=== PATIENT | female | born 1990 | race Caucasian/White ===

== ENCOUNTER → 2016-10-29 | Outpatient (CLI) | payer OTHER ==
[~2016-10-29] MED LIST: PREN29TA PO; PROM25TA10 PO; VITA100064 PO
== END ==
LOC: HPND 07:27
PROVIDERS: ATTEND Obstetrics & Gynecology
DX: Z36 Encounter for antenatal screening of mother (principal)
CPT/HCPCS: 36416; 76813

== ENCOUNTER 2016-11-04 09:23 | Emergency (ER) | payer OTHER ==
[~2016-11-04] VITALS: Ht 167.6 cm; Wt 80.0 kg
[~2016-11-04 09:23] MED LIST changes: -PROM25TA10 PO
[2016-11-04 09:27] VITALS: BP 148/86; PULSE 122; RESP 21; TEMP 97.8; O2SAT 100
[2016-11-04 09:45] VITALS: BP 119/66; PULSE 108; RESP 20; O2SAT 100
[2016-11-04] MEDS ORDERED: PROM25TA10 PO (09:47)
--- NOTE | 2016-11-04 10:35 | PD ---
HPI Chief Complaint: Related Problem Time Seen by Provider: 10:17 Travel History International Travel<30 days: No Contact w/Intl Traveler<30days: No Traveled to known affect area: No History of Present Illness HPI 26yo F who is [id number] presents to the ED with c/o episode of feeling her heart beat fast and sob yesterday that lasted an hour. States it happened again today and she checked her home pulse ox and her oxygen was good at 97% but her heart rate was 120bpm. Pt states it felt like a panic attack and that she has been feeling nervous about her baby since her miscarriage last February. Pt currently denies any chest pain, sob, fever, cough, n/v, abdominal pain, vaginal bleeding, weakness or numbness. Pt called her OB and was told to come to the ED. Pt is saturating at 100% on RA and HR is in the 80s. PFSH Past Medical History ?: LMP: JULY 31 : 2 Miscarriage: 1 Social History Alcohol Use: No Tobacco Use: No Substance Use: No Allergies-Medications (Allergen,Severity, Reaction): Coded Allergies: No Known Allergies (Unverified , 11/04/16) Reported Meds & Prescriptions Reported Meds & Active Scripts Active Reported Phenergan (Promethazine HCl) 25 Mg Tablet 25 Mg PO ONCE Plus Iron 29-1 mg ( Vit-Iron Carbonyl) 1 Tab Tab 1 Tab PO DAILY Review of Systems Except as stated in HPI: all other systems reviewed are Neg Physical Exam Narrative GENERAL: 26yo F not in distress. SKIN: Focused skin assessment warm/dry. HEAD: Atraumatic. Normocephalic. CARDIOVASCULAR: Regular rate and rhythm. No murmur appreciated. HR 85bpm. RESPIRATORY: No accessory muscle use. Clear to auscultation. Breath sounds equal bilaterally. Saturating at 100% on RA. GASTROINTESTINAL: Abdomen soft, non-tender. No rebound tenderness or guarding. MUSCULOSKELETAL: No obvious deformities. No clubbing. No cyanosis. No edema. NEUROLOGICAL: Awake and alert. No obvious cranial nerve deficits. Motor grossly within normal limits. Normal speech. PSYCHIATRIC: Appropriate mood and affect; insight and judgment normal. Data Data Last Documented VS Vital Signs Date Time Temp Pulse Resp B/P Pulse Ox O2 Delivery O2 Flow Rate FiO2 11/04/16 11:41 91 20 100 11/04/16 09:45 119/66 Room Air 11/04/16 09:27 97.8 Orders Electrocardiogram (11/04/16 ) Ed Poc Ultrasound (11/04/16 ) [facility] Medical Decision Making Medical Screen Exam Complete: Yes Emergency Medical Condition: Yes Interpretation(s) EKG: NSR 84bpm. Normal axis. No ST segment elevation or depression. Differential Diagnosis Panic attack vs. anxiety vs. PE is unlikely Narrative Course 26yo F with what sounds like a panic attack today. Discussed the risk and benefit of CT angio to r/o PE and given the low suspicion, decided together not to do a CT angio. Pt is requesting that I do a sonogram to make sure the baby is ok even though she has no abdominal pain or vaginal bleeding. Procedures Procedure Narrative Emergency Department Pelvic ultrasound was performed with patient consent. The curvilinear probe was used in the transverse and sagittal views within the suprapubic region revealing single intrauterine . heart rate was 146. Diagnosis Primary Impression: Panic attack Patient Instructions: General Instructions Departure Forms: Tests/Procedures Additional Instructions: Please follow up with your OBGYN as an outpatient. Return to the ED if you have any chest pain or sob. Med/Other Pt SpecificInfo: No Change to Meds Disposition: 01 DISCHARGE HOME Condition: Stable LukeAlthea ROCHA Nov 04, 2016 10:35
[2016-11-04 11:41] VITALS: PULSE 91; RESP 20; O2SAT 100
--- NOTE | 2016-11-05 10:01 | EKG ---
Date Performed: 11/04/2016 Time Performed: 10:50:26 PTAGE: 26 years EKG: Sinus rhythm NORMAL ECG NO PREVIOUS TRACING DOCTOR: Felice Shafer Interpretating Date/Time 11/05/2016 09:59:31
== END 2016-11-04 12:13 | disposition home or self-care (01) ==
LOC: NEPD 09:23
DX: O99.342 Other mental disorders complicating pregnancy, second trimester (principal); F41.0 Panic disorder [episodic paroxysmal anxiety]; R06.02 Shortness of breath; Z79.899 Other long term (current) drug therapy; Z3A.14 14 weeks gestation of pregnancy
CPT/HCPCS: 93005; 99283

== ENCOUNTER 2016-11-21 10:48 | Emergency (ER) | payer OTHER ==
[~2016-11-21 10:48] MED LIST changes: +PROM25TA10 PO; -VITA100064 PO
--- NOTE | 2016-11-21 11:29 | PD ---
HPI Chief Complaint Leaking fluid, 17 weeks Date Seen: Nov 21, 2016 Time Seen: 11:45 Travel History International Travel<30 Days: No Contact w/Intl Traveler<30Days: No Known Affected Area: No History of Present Illness HPI Pt is a 26 yo who presents with c/o leaking fluid vaginally. EDC is 05-07-2017. care with Dr Escoto, previously uncomplicated. Denies any fevers. Denies any pain or contractions. She states she noted staining, clear on her underwear last night, and this has continued till this morning. Para: 0 : 2 Last Menstrual Period: Nov 21, 2016 Miscarriage: 1 : 0 History Past Medical History Narrative Medical Nil significant Medical History: Denies Significant Hx Past Surgical History Surgical History: No Previous Surgery Family History Family History: Negative Social History Alcohol Use: No Tobacco Use: No Substance Abuse: No Allergies-Medications (Allergen,Severity, Reaction): Coded Allergies: No Known Allergies (Unverified , 11/04/16) Home Meds Reported Medications Promethazine (Phenergan)25 Mg [id number] Mg PO ONCE Ref 0 11/04/16 Vit-Iron Carbonyl ( Plus Iron 29-1 mg)1 Tab Tab1 Tab PO DAILY #30 TAB Ref 0 02/22/16 Review of Systems Except as stated in HPI: all other systems reviewed are Neg Physical Exam Narrative GENERAL: Well-nourished, well-developed patient. SKIN: Warm and dry. HEAD: Normocephalic and atraumatic. EYES: No scleral icterus. No injection or drainage. ENT: No nasal drainage noted. Mucous membranes pink. Airway patent. NECK: Supple, trachea midline. No JVD. CARDIOVASCULAR: Regular rate and rhythm without murmurs, gallops, or rubs. RESPIRATORY: Breath sounds equal bilaterally. No accessory muscle use. BREASTS: Bilateral exam showed no masses , no retractions, no nipple discharge. ABDOMEN/GI: Abdomen soft, non-tender, bowel sounds present, no rebound, no guarding Gravid to [-] weeks size Fundal Height: [-] GENITOURINARY: External Genitalia: intact and normal in appearance BUS glands: [-] Cervix: STERILE Speculum exam. No pool of fluid.No leak with strain. Thick yellowish discharge noted Cervix appears closed Swabs colled for Amniosure and for wet mount Dilatation: [-] Effacement: [-] Station: [-] Presentation: [-] Membranes: [intact] Uterine Contractions: [none] FHT's: Category: [-] Baseline: [-] Reactive: [-] Variability: [-] Decels: [-] EXTREMITIES: No cyanosis or edema. BACK: Nontender without obvious deformity. No CVA tenderness. NEUROLOGICAL: Awake and alert. Motor and sensory grossly within normal limits. Five out of 5 muscle strength in all muscle groups. Normal speech. [facility] Medical Record Reviewed: Yes Interpretation(s) Amniosure NEGATIVE Wet mount NEGATIVE Results discussed with patient Plan Discharge home. to call with any increased vaginal drainage, or bleeding Diagnosis Diagnosis: Primary Impression: Vaginal discharge during in first trimester Disposition: 01 DISCHARGE HOME Condition: Good Jonny Morel MD Nov 21, 2016 11:29
== END 2016-11-21 14:03 | disposition home or self-care (01) ==
LOC: HOBED 10:48
DX: O26.892 Other specified pregnancy related conditions, second trimester (principal); N89.8 Other specified noninflammatory disorders of vagina; Z3A.17 17 weeks gestation of pregnancy
CPT/HCPCS: 87210; 99283

== ENCOUNTER 2017-04-24 22:43 | Emergency (ER) | payer OTHER ==
--- NOTE | 2017-04-24 23:14 | PD ---
HPI Chief Complaint 38 weeks and 1 day Uterine contractions 1 day Date Seen: Apr 24, 2017 Time Seen: 23:25 Travel History International Travel<30 Days: No Contact w/Intl Traveler<30Days: No Known Affected Area: No History of Present Illness HPI Pt is a 26 yo at 38 weeks and 1 day EDC 05-07-2017, care with dr Escoto. Care previously uncomplicated. Patient reports uterine contractions 1 day Prior to presenting to ER, contractions were about 5 minutes apart Active movements. No vaginal bleeding. Patient was 3cm dilated in office yesterday. Weeks Gestation: 38 Para: 0 : 1 Last Menstrual Period: Nov 21, 2016 Miscarriage: 1 History Past Medical History Medical History: Denies Significant Hx Obstetric History Obstetric History previous 1st trimester miscarriage Family History Family History: Negative Social History Alcohol Use: No Tobacco Use: No Substance Abuse: No Allergies-Medications (Allergen,Severity, Reaction): Coded Allergies: No Known Allergies (Unverified , 11/04/16) Home Meds Reported Medications Promethazine (Phenergan) 25 Mg Tablet, 25 MG PO ONCE for Nausea/Vomiting, TAB 0 Refills 11/04/16 Vit-Iron Carbonyl ( Plus Iron 29-1 mg) 1 Tab Tab, 1 TAB PO DAILY for Nutritional Supplement, #30 TAB 0 Refills 02/22/16 Review of Systems Except as stated in HPI: all other systems reviewed are Neg Physical Exam Narrative GENERAL: Well-nourished, well-developed patient. SKIN: Warm and dry. HEAD: Normocephalic and atraumatic. EYES: No scleral icterus. No injection or drainage. ENT: No nasal drainage noted. Mucous membranes pink. Airway patent. NECK: Supple, trachea midline. No JVD. CARDIOVASCULAR: Regular rate and rhythm without murmurs, gallops, or rubs. RESPIRATORY: Breath sounds equal bilaterally. No accessory muscle use. BREASTS: Bilateral exam showed no masses , no retractions, no nipple discharge. ABDOMEN/GI: Abdomen soft, non-tender, bowel sounds present, no rebound, no guarding Gravid to [38] weeks size Fundal Height: [38] GENITOURINARY: External Genitalia: intact and normal in appearance BUS glands: [wnl] Cervix: [moderate] Dilatation: [2-3cm] posterior Effacement: [50%] Station: [-3] Presentation: [vertex] Membranes: [intact] Uterine Contractions: [10 minutes] FHT's: Category: [1] Baseline: [130s] Reactive: [-] Variability: [moderate] Decels: [none] EXTREMITIES: No cyanosis or edema. BACK: Nontender without obvious deformity. No CVA tenderness. NEUROLOGICAL: Awake and alert. Motor and sensory grossly within normal limits. Five out of 5 muscle strength in all muscle groups. Normal speech. Data Data Vital Signs Reviewed: Yes [facility] Medical Record Reviewed: Yes Plan 26 yo at 38 weeks and 1 day IUP. Presents with uterine contractions every 5 minutes for about 1 hour at home. Contractions now spacing out. Unchanged from office exam. status reassuring Will recheck in 1 hour. Cervix unchanged after 1 hour. Patient declines offer of PO Vistaril. Labor precautions emphasized. Diagnosis Diagnosis: Primary Impression: with 38 completed weeks gestation Additional Impression: False labor after 37 weeks of gestation without delivery Disposition: 01 DISCHARGE HOME Condition: Good Jonny Morel MD Apr 24, 2017 23:14
== END 2017-04-25 01:17 | disposition home or self-care (01) ==
LOC: HOBED 22:43
DX: O47.1 False labor at or after 37 completed weeks of gestation (principal); Z3A.38 38 weeks gestation of pregnancy
CPT/HCPCS: 59025

== ENCOUNTER 2017-04-28 23:24 | Emergency (ER) | payer OTHER ==
--- NOTE | 2017-04-29 00:12 | PD ---
HPI Chief Complaint Contractions Date Seen: Apr 29, 2017 Time Seen: 00:08 Travel History International Travel<30 Days: No Contact w/Intl Traveler<30Days: No Known Affected Area: No History of Present Illness HPI 26-year-old who is at 39 weeks 1 day comes in with contractions since 8 PM. They are irregular and patient states that she's had contractions similar to this episode several times and has become somewhat frustrating. Patient was in here last week with contractions and she was noted to be 3 cm but did not change and in the office last she was still 3 cm. Patient had some watery vaginal discharge and she also wanted to ensure that she did not rupture her membranes. Patient denies any antepartum complications History Past Medical History Medical History: Denies Significant Hx Family History Family History: Negative Social History Alcohol Use: No Tobacco Use: No Substance Abuse: No Allergies-Medications (Allergen,Severity, Reaction): Coded Allergies: No Known Allergies (Unverified , 11/04/16) Home Meds Reported Medications Promethazine (Phenergan) 25 Mg Tablet, 25 MG PO ONCE for Nausea/Vomiting, TAB 0 Refills 11/04/16 Vit-Iron Carbonyl ( Plus Iron 29-1 mg) 1 Tab Tab, 1 TAB PO DAILY for Nutritional Supplement, #30 TAB 0 Refills 02/22/16 Review of Systems Except as stated in HPI: all other systems reviewed are Neg Physical Exam Narrative GENERAL: Well-nourished, well-developed patient. SKIN: Warm and dry. HEAD: Normocephalic and atraumatic. EYES: No scleral icterus. No injection or drainage. ENT: No nasal drainage noted. Mucous membranes pink. Airway patent. NECK: Supple, trachea midline. No JVD. CARDIOVASCULAR: Regular rate and rhythm without murmurs, gallops, or rubs. RESPIRATORY: Breath sounds equal bilaterally. No accessory muscle use. ABDOMEN/GI: Abdomen soft, non-tender, bowel sounds present, no rebound, no guarding Gravid to [38-] weeks size Fundal Height: [-] GENITOURINARY: External Genitalia: intact and normal in appearance BUS glands: [-] Normal Cervix: [-] Posterior Dilatation: [-] 3 Effacement: [-] 50 Station: [-] -2 Presentation: [-] Vertex Membranes: [intact or ruptured] intact with negative amnisure Uterine Contractions: [-] Irregular every 8-10 FHT's: Category: [-] 1 Baseline: [-] 140 Reactive: [-] Moderate Variability: [-] Moderate Decels: [-] Absent EXTREMITIES: No cyanosis or edema. BACK: Nontender without obvious deformity. No CVA tenderness. NEUROLOGICAL: Awake and alert. Motor and sensory grossly within normal limits. Five out of 5 muscle strength in all muscle groups. Normal speech. Data Data Vital Signs Reviewed: Yes [facility] Medical Record Reviewed: Yes Plan 26-year-old at 39 weeks 1 day with false labor and no cervical change since last week Amnisure negative Follow-up with OB provider as scheduled Diagnosis Diagnosis: Primary Impression: 39 weeks gestation of Additional Impression: False labor after 37 completed weeks of gestation Disposition: 01 DISCHARGE HOME Rosalinda Mendenhall MD Apr 29, 2017 00:12
== END 2017-04-29 00:23 | disposition home or self-care (01) ==
LOC: HOBED 23:24
DX: O47.1 False labor at or after 37 completed weeks of gestation (principal); Z3A.39 39 weeks gestation of pregnancy
CPT/HCPCS: 84112; 99283

== ENCOUNTER 2017-04-30 09:48 | Inpatient (IN) | payer OTHER ==
[2017-04-30] VITALS (73 sets, daily range): BP systolic 96–136; BP diastolic 60–76; PULSE 72–112; RESP 14–20; TEMP 97.5–98.7; O2SAT 100
[~2017-04-30] VITALS: Ht 167.6 cm; Wt 92.0 kg
--- NOTE | 2017-04-30 10:30 | PD ---
HPI Chief Complaint LOF Travel History International Travel<30 Days: No Contact w/Intl Traveler<30Days: No Known Affected Area: No History of Present Illness HPI 26y/o , IUP at 39.2 PNC uncomplicated per patient report Patient presents c/o gush of clear fluid at 8:30am followed by another gush of fluid after arrival in the parking lot and continues to leak since arriving. She reports irregular contractions but denies regular or painful retractions. She reports good FM. She denies any VB. She has no other complaints or concerns today. Weeks Gestation: 39 Para: 0 : 2 History Past Medical History Medical History: Denies Significant Hx Obstetric History Obstetric History , SAB 1 Past Surgical History Surgical History: No Previous Surgery Family History Narrative Family History Hypothyroidism, CVA Social History Alcohol Use: No Tobacco Use: No Substance Abuse: No Allergies-Medications (Allergen,Severity, Reaction): Coded Allergies: No Known Allergies (Unverified , 11/04/16) Home Meds Reported Medications Promethazine (Phenergan) 25 Mg Tablet, 25 MG PO ONCE for Nausea/Vomiting, TAB 0 Refills 11/04/16 Vit-Iron Carbonyl ( Plus Iron 29-1 mg) 1 Tab Tab, 1 TAB PO DAILY for Nutritional Supplement, #30 TAB 0 Refills 02/22/16 Review of Systems Except as stated in HPI: all other systems reviewed are Neg Physical Exam Narrative GENERAL: Well-nourished, well-developed patient. SKIN: Warm and dry. HEAD: Normocephalic and atraumatic. EYES: No scleral icterus. No injection or drainage. ENT: No nasal drainage noted. Mucous membranes pink. Airway patent. NECK: Supple, trachea midline. No JVD. CARDIOVASCULAR: Regular rate and rhythm without murmurs, gallops, or rubs. RESPIRATORY: Breath sounds equal bilaterally. No accessory muscle use. BREASTS: Deferred ABDOMEN/GI: Abdomen soft, non-tender, bowel sounds present, no rebound, no guarding Gravid GENITOURINARY: External Genitalia: intact and normal in appearance. Grossly normal BUS, grossly normal rugae. Patient appears to have grossly ruptured membranes. SVE 4-5/70/-1 as per RN. Cephalic as per RN FHT's: heart tones are in the 140s with moderate long-term variability, good accelerations, no decelerations. This is a category 1 heart rate tracing and reactive NST EXTREMITIES: No cyanosis or edema. BACK: Nontender without obvious deformity. NEUROLOGICAL: Awake and alert. Motor and sensory grossly within normal limits. Five out of 5 muscle strength in all muscle groups. Normal speech. Psychiatric: Grossly normal memory and affect Muscle skeletal: Grossly normal range of motion, gait, muscle strength Data Data Orders Orders Ob (2e) Additional Admit Info (04/30/17 10:25) MDM Narrative Course / MDM Assessment/plan: 26-year-old 1. IUP at 39.2 2. SROM: The patient is grossly ruptured membranes and may be entering labor with a cervical exam of [address] Mart was notified and the patient will be admitted to Dr. Escoto. Initial labor orders were placed and discussed in brief the patient risks of /risks and indications for delivery. 3. well-being: Reassuring testing with category 1 heart rate tracing and reactive NST 4. GBS negative Kassie Johns MD Apr 30, 2017 10:30
[2017-04-30] MEDS ORDERED: LACTATED RINGER'S 1000 ML INJ 1,000 ML IV PRN (10:31)
[2017-04-30] MEDS ORDERED: SODIUM CHLORID 0.9% 500 ML INJ 500 ML IV PRN (10:45)
[2017-04-30] MEDS ORDERED: ONDANSETRON HCL 4 MG/2 ML VIAL IV PUSH PRN (10:45)
[2017-04-30] MEDS ORDERED: CITRIC ACID-SODIUM CITRATE LIQ 30 ML UDC PO SCH (10:45)
[2017-04-30] MEDS ORDERED: OXYTOCIN 30 UNITS-500ML PREMIX 500 ML IV ONE (10:45)
[2017-04-30] MEDS ORDERED: LIDOCAINE HCL 1% 50 ML VIAL INFIL PRN (10:45)
[2017-04-30] MEDS ORDERED: MINERAL OIL 10 ML VIAL TOPICAL PRN (10:45)
[2017-04-30] MEDS ORDERED: LIDOCAINE HCL 1% 50 ML VIAL I-DERMAL PRN (10:45)
[2017-04-30] MEDS ORDERED: SODIUM CHLOR 0.9% 1000 ML INJ 1,000 ML IV PRN (10:51)
[2017-04-30 11:01] LABS: AUTOMATED NEUTROPHIL # 8.3 TH/MM3 (1.8-7.7); BASOPHIL % 0.2 % (0.0-2.0); EOSINOPHIL % 0.3 % (0.0-4.0); HEMATOCRIT 34.5 % (35.0-46.0); HEMOGLOBIN 11.4 GM/DL (11.6-15.3); LYMPH % 16.1 % (9.0-44.0); LYMPHOCYTE # 1.7 TH/MM3 (1.0-4.8); MEAN CELL VOLUME 79.2 FL (80.0-100.0); MEAN CORPUSCULAR HEMOGLOBIN 26.1 PG (27.0-34.0); MEAN PLATELET VOLUME 8.1 FL (7.0-11.0); MONO % 5.4 % (0.0-8.0); MONOCYTE # 0.6 TH/MM3 (0-0.9); PLATELET COUNT 316 TH/MM3 (150-450); RED BLOOD COUNT 4.36 MIL/MM3 (4.00-5.30); RED CELL DISTRIBUTION WIDTH 15.8 % (11.6-17.2); WHITE BLOOD COUNT 10.6 TH/MM3 (4.0-11.0)
[2017-04-30] MEDS: LACTATED RINGER'S 1000 ML INJ 1,000 ML IV SCH ×2 (11:09→19:11)
[2017-04-30 11:17] LABS: BILIRUBIN, URINE NEG (NEG); BLOOD, URINE NEG (NEG); GLUCOSE,URINE NEG (NEG); KETONE, URINE NEG (NEG); MUCUS URINE FEW /lpf (OCC); NITRITE,URINE NEG (NEG); PH, URINE 6.5 (5.0-8.5); SQUAMOUS EPITHELIAL CELL URINE 2 /hpf (0-5); URINE COLOR YELLOW (YELLW/STRAW); URINE LEUKOCYTE ESTERASE SMALL (NEG)
--- NOTE | 2017-04-30 13:19 | PD.LABORPN ---
Subjective Subjective doing well no CTX Objective Vital Signs Vital Signs Date Time Temp Pulse Resp B/P (MAP) Pulse Ox O2 Delivery O2 Flow Rate FiO2 04/30/17 12:30 95 114/75 (88) 04/30/17 12:00 89 110/67 (81) 04/30/17 11:30 93 107/73 (84) 04/30/17 10:47 86 117/69 (85) Objective Pelvic Exam: Cervix: [-] Dilatation: 4-5 Effacement: [-] Station: [-] Presentation: [-] Membranes: SROM at 8:30 Uterine Contractions: [-] FHT's: Category: 1 Baseline: [-] Reactive: [-] Variability: [-] Decels: [-] Weeks Gestation: 39 Assessment/Plan Problem List: (1) 39 weeks gestation of ICD Codes: Z3A.39 - 39 weeks gestation of Chidi Mart MD Apr 30, 2017 13:19
[2017-04-30] MEDS ORDERED: OXYTOCIN 30 UNITS-500ML PREMIX 500 ML IV PRN (13:30)
[2017-04-30] MEDS ORDERED: DO NOT ADMINISTER ANTICOAGULANTS PRN (16:00)
[2017-04-30] MEDS ORDERED: MEASLES, MUMPS, RUBELLA VACCINE 0.5 ML VIAL SQ ONE (16:00)
[2017-04-30] MEDS ORDERED: NO SYSTEM NARCOTICS PRN (16:00)
[2017-04-30] MEDS ORDERED: DIPHTH/TETANUS/ACEL PERTUSSIS (BOOSTER) 0.5 ML VIAL/PFS IM ONE (16:00)
[2017-04-30] MEDS ORDERED: fentaNYL 2MCG-BUPIV 0.125% 100 ML EPIDURAL SCH (16:00)
[2017-04-30] MEDS ORDERED: ePHEDrine/NS 25 MG/5 ML SYRINGE ONE (16:05)
[2017-04-30] MEDS ORDERED: fentaNYL 2MCG-BUPIV 0.125% INJ 100 ML ONE (16:05)
--- NOTE | 2017-04-30 17:43 | PD.LABORPN ---
Subjective Subjective doing well Objective Vital Signs Vital Signs Date Time Temp Pulse Resp B/P (MAP) Pulse Ox O2 Delivery O2 Flow Rate FiO2 04/30/17 17:25 74 04/30/17 17:20 75 04/30/17 17:15 83 04/30/17 17:10 75 04/30/17 17:05 86 115/70 (85) 04/30/17 17:05 72 04/30/17 17:00 84 04/30/17 16:55 85 96/67 (77) 04/30/17 16:55 82 04/30/17 16:51 74 114/62 (79) 04/30/17 16:50 90 04/30/17 16:45 75 04/30/17 16:45 87 117/64 (81) 04/30/17 16:40 85 111/66 (81) 04/30/17 16:40 85 04/30/17 16:35 95 111/69 (83) 04/30/17 16:35 93 04/30/17 16:30 87 115/70 (85) 04/30/17 16:30 88 04/30/17 16:25 86 117/73 (88) 04/30/17 16:25 90 04/30/17 16:20 85 106/60 (75) 04/30/17 16:20 95 04/30/17 16:19 84 110/73 (85) 04/30/17 16:15 89 04/30/17 16:05 18 04/30/17 16:00 83 111/71 (84) 04/30/17 15:30 88 114/74 (87) 04/30/17 15:00 94 109/74 (86) 04/30/17 14:30 85 111/75 (87) 04/30/17 14:00 82 114/69 (84) 04/30/17 13:43 98.7 18 04/30/17 13:30 85 113/71 (85) 04/30/17 13:00 86 111/68 (82) 04/30/17 12:30 95 114/75 (88) 04/30/17 12:00 89 110/67 (81) 04/30/17 11:30 93 107/73 (84) 04/30/17 10:47 86 117/69 (85) Objective Pelvic Exam: Cervix: [-] Dilatation: 5 Effacement: [-] Station: [-] Presentation: [-] Membranes: SROM Uterine Contractions: [-] FHT's: Category: 1 Baseline: [-] Reactive: [-] Variability: [-] Decels: [-] Weeks Gestation: 39 Gest Age Assessed Date: Apr 30, 2017 Pt started active labor?: Yes Active labor start date: Apr 30, 2017 Active labor start time: 08:30 Medical induction of labor?: No Artificial rupture of membrane: No Assessment/Plan Problem List: (1) 39 weeks gestation of ICD Codes: Z3A.39 - 39 weeks gestation of Assessment and Plan doing well Chidi Mart MD Apr 30, 2017 17:43
--- NOTE | 2017-04-30 20:33 | PD.OB.DELI ---
Weeks gestation: 39 Gest age assessed date: Apr 30, 2017 Pt started active labor?: Yes Active labor start date: Apr 30, 2017 Active labor start time: 08:30 Medical induction of labor?: No Artificial rupture of membrane: No Anesthesia: Epidural Episiotomy: None Vaginal Delivery: Normal, Spontaneous Presentation: Occiput anterior Nuchal Cord: None Delayed cord clamping (45 sec): Yes Infant: Male, Single Delivery date: Apr 30, 2017 Delivery time: 20:10 One Minute : 8 Five Minute : 9 Weight: 7# 14 oz Placenta: Spontaneous delivery, Intact, 3 vessel cord Laceration: Vaginal laceration, 1 deg Repair: Chromic interrupted Estimated blood loss: 300 Chidi Mart MD Apr 30, 2017 20:33
--- NOTE | 2017-04-30 20:42 | HHI.DCPOC ---
Discharge Care Plan Diagnosis: (1) Spontaneous vaginal delivery Report Symptoms to Your Doctor -Temperature above 100.5 degrees -Redness, of incision or excessive or foul smelling drainage -Unusual pain or calf pain -Increased vaginal bleeding -Painful or difficulty urinating -Feelings of extreme sadness or anxiety after 2 weeks Goals to Promote Your Health * To prevent worsening of your condition and complications * To maintain your health at the optimal level Directions to Meet Your Goals Take your medications as prescribed Follow your dietary instruction Follow activity as directed Ensure plenty of rest for recovery Drink fluids for hydration Keep your appointments as scheduled Take your immunizations and boosters as scheduled If your symptoms worsen call your PCP, if no PCP go to Urgent Care Center or Emergency Room Smoking is Dangerous to Your Health. Avoid second hand smoke Call the 24-hour crisis hotline for domestic abuse at Chidi Mart MD Apr 30, 2017 20:41
[2017-04-30] MEDS ORDERED: BENZOCAINE 20% TOPICAL SPRAY 60 ML CAN TOPICAL PRN (20:45)
[2017-04-30] MEDS ORDERED: ACETAMINOPHEN 325 MG TAB PO PRN (20:45)
[2017-04-30] MEDS ORDERED: oxyCODONE/ACETAMINOPHEN 5 MG/325 MG TAB PO PRN ×2 (20:45)
[2017-04-30] MEDS ORDERED: ALUMINUM/MAGNESIUM/SIMETH 30 ML CUP PO PRN (20:45)
[2017-04-30] MEDS ORDERED: ONDANSETRON ODT 4 MG TAB PO PRN (20:45)
[2017-04-30] MEDS ORDERED: OXYTOCIN 30 UNITS-500ML PREMIX 500 ML IV SCH (20:45)
[2017-04-30] MEDS ORDERED: SODIUM CHLORIDE 0.9% FLUSH 10 ML FLUSH IV FLUSH PRN (20:45)
[2017-04-30] MEDS ORDERED: WITCH HAZEL 50%/GLYCERIN 12.5% 40 PAD JAR TOPICAL PRN (20:45)
[2017-04-30] MEDS ORDERED: DOCUSATE SODIUM 50 MG/SENNA 8.6 MG TAB PO PRN (21:00)
[2017-04-30] MEDS ORDERED: ZOLPIDEM TARTRATE 5 MG TAB PO PRN (21:00)
[2017-04-30] MEDS: SODIUM CHLORIDE 0.9% FLUSH 10 ML FLUSH IV FLUSH SCH (21:11)
[2017-04-30] MEDS ORDERED: IBUPROFEN 800 MG TAB PO PRN (22:00)
[2017-04-30] MEDS ORDERED: ePHEDrine/NS 25 MG/5 ML SYRINGE IV PUSH PRN (22:00)
[2017-05-01 02:56] VITALS: BP 102/59; PULSE 82; RESP 18; TEMP 97.7
[2017-05-01 08:00] VITALS: BP 99/60; PULSE 94; RESP 16; TEMP 97.6; O2SAT 98
--- NOTE | 2017-05-01 08:05 | HHI.OB ---
Subjective Post Day: 1 Remarks doing well Objective Vitals/I&O Vital Signs Date Time Temp Pulse Resp B/P (MAP) Pulse Ox O2 Delivery O2 Flow Rate FiO2 05/01/17 02:56 97.7 82 18 102/59 (73) 18 22:45 97.5 90 20 117/66 (83) 18 22:00 86 111/69 (83) 18 21:45 86 108/69 (82) 18 21:30 84 111/60 (77) 18 21:25 15 04/30/18 21:09 15 18 21:00 93 114/67 (83) 18 20:49 14 18 20:33 98.3 18 18 20:30 97 113/71 (85) 18 20:15 19 18 20:01 111 136/70 (92) 18 19:45 92 100 18/18 19:40 112 100 18/18 19:35 102 18/18 19:35 100 04/30/18 19:30 86 04/30/18 19:30 100 18/18 19:30 97 109/72 (84) 18 19:25 90 100 04/30/18 19:20 89 100 18/18 19:15 97 100 04/30/18 19:10 89 100 18/18 19:05 91 18/18 19:05 100 18 19:01 97.7 15 18 19:00 89 18/18 19:00 93 119/76 (90) 18 19:00 100 18/18 18:55 83 100 18/18 18:50 88 100 18/18 18:45 100 18/18 18:45 77 18/18 18:40 82 18/18 18:35 84 18/18 18:30 82 107/66 (80) 04/30/18 18:30 80 18/18 18:25 93 18/18 18:20 84 18/18 18:15 93 18/18 18:10 87 18 18:05 87 18 18:01 18 18 18:00 77 114/69 (84) 18 18:00 78 18 17:55 79 18 17:50 76 18 17:45 76 18 17:40 78 18 17:38 18 04/30/17 17:38 98.0 18 17:35 78 18 17:31 81 121/67 (85) 18 17:30 78 18 17:25 74 18 17:20 75 18 17:15 83 18 17:10 75 18 17:05 86 115/70 (85) 18 17:05 72 04/30/17 17:00 84 18 16:55 85 96/67 (77) 04/30/17 16:55 82 18 16:51 74 114/62 (79) 18 16:50 90 18 16:45 75 18 16:45 87 117/64 (81) 18 16:40 85 111/66 (81) 18 16:40 85 18 16:35 95 111/69 (83) 04/30/17 16:35 93 18 16:30 87 115/70 (85) 18 16:30 88 18 16:25 86 117/73 (88) 18 16:25 90 04/30/18 16:20 85 106/60 (75) 18 16:20 95 18 16:19 84 110/73 (85) 18 16:15 89 18 16:05 18 18 16:00 83 111/71 (84) 18 15:30 88 114/74 (87) 18 15:00 94 109/74 (86) 18 14:30 85 111/75 (87) 18 14:00 82 114/69 (84) 04/30/17 13:43 98.7 18 04/30/17 13:30 85 113/71 (85) 04/30/17 13:00 86 111/68 (82) 04/30/17 12:30 95 114/75 (88) 04/30/17 12:00 89 110/67 (81) 04/30/17 11:30 93 107/73 (84) 04/30/17 10:47 86 117/69 (85) Objective Remarks GENERAL: Well-nourished, well-developed patient. ABDOMEN/GI: Abdomen soft, non-tender. Fundus: Firm, non-tender at umbilicus. GENITOURINARY: Light to moderate bleeding. EXTREMITIES: No cyanosis or edema, non-tender, without signs of DVT. Medications and IVs Current Medications Medications (Trade) Dose Ordered Sig/Arabella Route Start Time Stop Time Status Last Admin (NS Flush) 2 ml BID IV FLUSH 04/30/17 21:00 04/30/17 21:11 (NS Flush) 2 ml UNSCH PRN IV FLUSH 04/30/17 20:45 (Tylenol) 650 mg Q4H PRN PO 04/30/17 20:45 05/01/17 05:15 (Motrin) 800 mg Q8HR PRN PO 04/30/17 22:00 04/30/17 22:22 (Percocet 5-325 Mg) 1 tab Q4H PRN PO 04/30/17 20:45 (Percocet 5-325 Mg) 2 tab Q4H PRN PO 04/30/17 20:45 (Americaine 20% Top Spr) 1 spray Q4H PRN TOPICAL 04/30/17 20:45 (Tucks Pads) 1 applic QID PRN TOPICAL 04/30/17 20:45 (Nicky-Colace) 2 tab Q12HR PRN PO 04/30/17 21:00 (Ambien) 5 mg HS PRN PO 04/30/17 21:00 (Mag-Al Plus Susp Liq) 15 ml Q8H PRN PO 04/30/17 20:45 (Zofran Odt) 4 mg Q6H PRN PO 04/30/17 20:45 Miscellaneous Information No systemic narcotics to be given except... UNSCH PRN .XX 04/30/17 16:00 05/01/17 15:59 Miscellaneous Information DO NOT ADMINISTER ANY ANTICOAGUL... UNSCH PRN .XX 04/30/17 16:00 05/01/17 15:59 Fentanyl/ Bupivacaine HCl 100 ml @ 0 mls/hr TITRATE EPIDURAL 04/30/17 16:00 (ePHEDrine/NS 25 MG/5 ML SYR) 10 mg UNSCH PRN IV PUSH 04/30/17 22:00 05/01/17 21:59 Assessment/Plan Problem List: (1) 39 weeks gestation of ICD Codes: Z3A.39 - 39 weeks gestation of (2) Spontaneous vaginal delivery ICD Codes: O80 - Encounter for full-term uncomplicated delivery Chidi Mart MD May 01, 2017 08:05
[2017-05-01] MEDS ORDERED: OXYC1TAB63 PO (08:06)
[2017-05-01] MEDS: IBUPROFEN 800 MG TAB PO PRN ×2 (08:46→16:23)
[2017-05-01] MEDS: SODIUM CHLORIDE 0.9% FLUSH 10 ML FLUSH IV FLUSH SCH (16:13)
[2017-05-01 20:00] VITALS: BP 101/69; PULSE 87; RESP 18; TEMP 98; O2SAT 97
[2017-05-02] MEDS: IBUPROFEN 800 MG TAB PO PRN (01:57)
[2017-05-02 08:00] VITALS: BP 105/64; PULSE 94; RESP 16; TEMP 97.6; O2SAT 99
[2017-05-02] MEDS: SODIUM CHLORIDE 0.9% FLUSH 10 ML FLUSH IV FLUSH SCH (09:20)
--- NOTE | 2017-05-02 14:59 | HHI.DCPOC ---
Discharge Care Plan Your Health Problems Are: Vaginal delivery Report Symptoms to Your Doctor -Temperature above 100.5 degrees -Redness, of incision or excessive or foul smelling drainage -Unusual pain or calf pain -Increased vaginal bleeding -Painful or difficulty urinating -Feelings of extreme sadness or anxiety after 2 weeks Goals to Promote Your Health * To prevent worsening of your condition and complications * To maintain your health at the optimal level Directions to Meet Your Goals Take your medications as prescribed Follow your dietary instruction Follow activity as directed Ensure plenty of rest for recovery Drink fluids for hydration Keep your appointments as scheduled Take your immunizations and boosters as scheduled If your symptoms worsen call your PCP, if no PCP go to Urgent Care Center or Emergency Room Smoking is Dangerous to Your Health. Avoid second hand smoke Call the 24-hour crisis hotline for domestic abuse at Alison Anna MD May 02, 2017 14:59
--- NOTE | 2017-05-02 15:00 | HHI.DS ---
Admission Date Apr 30, 2017 at 10:31 Discharge Date: May 02, 2017 Admitting Diagnosis labor at term Diagnosis: Delivery Date: Apr 30, 2017 Vaginal Delivery: Normal Infant: Male, Single Brief History 26y/o , IUP at 39.2 PNC uncomplicated per patient report Patient presents c/o gush of clear fluid at 8:30am followed by another gush of fluid after arrival in the parking lot and continues to leak since arriving. She reports irregular contractions but denies regular or painful retractions. She reports good FM. She denies any VB. She has no other complaints or concerns today. Pt Condition on Discharge: Good Discharge Disposition: Discharge Home Discharge Instructions Diet Instructions: As Tolerated, No Restrictions Activities You Can Perform: Pelvic Rest Alison Anna MD May 02, 2017 15:00
== END 2017-05-02 15:23 | disposition home or self-care (01) | DRG 775 ==
LOC: HOBED 09:48 → H2EA 10:31 → H1EA 22:25
PROVIDERS: ADMIT Obstetrics & Gynecology; ATTEND Obstetrics & Gynecology
PROC: 10E0XZZ Delivery of Products of Conception, External Approach (ICD-10-PCS; principal; 2017-04-30)
PROC: 0UQGXZZ Repair Vagina, External Approach (ICD-10-PCS; 2017-04-30)
PROC: 00HU33Z Insertion of Infusion Device into Spinal Canal, Percutaneous Approach (ICD-10-PCS; 2017-04-30)
PROC: 3E0R3BZ Introduction of Anesthetic Agent into Spinal Canal, Percutaneous Approach (ICD-10-PCS; 2017-04-30)
DX: O71.4 Obstetric high vaginal laceration alone (principal); O47.1 False labor at or after 37 completed weeks of gestation; Z37.0 Single live birth; Z3A.39 39 weeks gestation of pregnancy
CPT/HCPCS: 59025; 80307; 81001; 84112; 85025; 86900; 86901; 90715; J2590; J7120